=== PATIENT | female | born 1985 | race Hispanic/Latino ===

== ENCOUNTER 2017-05-12 19:36 | Emergency (ER) | payer SELFPAY | END 2017-05-12 20:26 | disposition home or self-care (01) | LOC: ERS 19:36 | DX: M25.532 Pain in left wrist (principal); R20.2 Paresthesia of skin | CPT/HCPCS: 99283 ==

== ENCOUNTER 2021-02-19 16:25 | Emergency (ER) | payer BC ==
[2021-02-19] MEDS ORDERED: Cyclobenzaprine 10 MG TAB ONE (17:25)
[2021-02-19] MEDS ORDERED: Ketorolac Tromethamine 30 MG/ML VIAL ONE (17:25)
[2021-02-19 17:34] LABS: #Basophils 0.1 thou/uL (0.0-0.2); #Eosinphils 0.3 thou/uL (0.0-0.7); #Lymphocytes 1.9 thou/uL (1.20-3.40); #Monocytes 0.6 thou/uL (0.11-0.59); #Neutrophils 6.3 thou/uL (1.40-6.50); %Basophils 0.6 % (0.0-1.0); %Eosinophils 3.4 % (0.0-10.0); %Lymphocytes 20.6 % (21.0-51.0); %Monocytes 6.6 % (0.0-10.0); %Neutrophils 68.7 % (42.0-75.0); Hemoglobin 12.5 g/dL (12.0-16.0); Mean Corpuscular HGB CONC 32.8 g/dL (32.0-36.0); Mean Corpuscular Hemoglobin 30.8 pg (27.0-31.0); Mean Corpuscular Volume 93.8 fL (78.0-98.0); Mean Platelet Volume 7.7 fL (7.4-10.4); Platelet Count 363 thou/uL (130-400); RBC Distribution Width 11.8 % (11.5-14.5); Red Blood Cell (RBC) Count 4.07 mill/uL (4.20-5.40); White Blood Cell (WBC) Count 9.2 thou/uL (4.8-10.8)
[2021-02-19 17:53] LABS: ALT (SGPT) 44 U/L (8-55); AST (SGOT) 30 U/L (5-34); Albumin 4.2 g/dL (3.5-5.0); Alkaline Phosphatase 96 U/L (40-110); Anion Gap 16 mmol/L (10-20); BUN (Urea Nitrogen) 12 mg/dL (7.0-18.7); Bilirubin, Total 0.5 mg/dL (0.2-1.2); Calc. Creatinine Clearance 0 mL/min (70-130); Calcium 9.5 mg/dL (7.8-10.44); Carbon Dioxide 23 mmol/L (22-29); Chloride 103 mmol/L (98-107); Globulin 3.8 g/dL (2.4-3.5); Glucose 110 mg/dL (70-105); Potassium 4.5 mmol/L (3.5-5.1); Sodium 137 mmol/L (136-145)
== END 2021-02-19 18:59 | disposition home or self-care (01) ==
LOC: ERS 16:25
DX: S29.011A Strain of muscle and tendon of front wall of thorax, initial encounter (principal); X58.XXXA Exposure to other specified factors, initial encounter
CPT/HCPCS: 36415; 71045; 80053; 84484; 85025; 93005; 96374; J1885

== ENCOUNTER 2021-09-17 14:37 | Outpatient (CLI) | payer BC | END 2021-09-17 14:38 | disposition home or self-care (01) | LOC: ULT 14:37 | PROVIDERS: ATTEND Nurse Practitioner Family | DX: R22.1 Localized swelling, mass and lump, neck (principal); R59.0 Localized enlarged lymph nodes | CPT/HCPCS: 76536 ==

== ENCOUNTER 2021-10-07 13:00 | Outpatient (CLI) | payer BC | END 2021-10-07 13:01 | disposition home or self-care (01) | LOC: BICCT 13:00 → ULT 13:01 | PROVIDERS: ATTEND Nurse Practitioner Family | DX: R59.0 Localized enlarged lymph nodes (principal); R79.1 Abnormal coagulation profile; C09.9 Malignant neoplasm of tonsil, unspecified | CPT/HCPCS: 70492 ==

== ENCOUNTER 2021-10-12 18:12 | Emergency (ER) | payer BC ==
[2021-10-12 18:48] LABS: #Basophils 0.1 thou/uL (0.0-0.2); #Eosinphils 0.3 thou/uL (0.0-0.7); #Lymphocytes 2.2 thou/uL (1.20-3.40); #Monocytes 0.7 thou/uL (0.11-0.59); #Neutrophils 6.1 thou/uL (1.40-6.50); %Basophils 0.6 % (0.0-1.0); %Eosinophils 3.3 % (0.0-10.0); %Lymphocytes 23.9 % (21.0-51.0); %Monocytes 7.1 % (0.0-10.0); %Neutrophils 65.2 % (42.0-75.0); Hemoglobin 11.4 g/dL (12.0-16.0); Mean Corpuscular HGB CONC 31.9 g/dL (32.0-36.0); Mean Corpuscular Volume 94.1 fL (78.0-98.0); Mean Platelet Volume 6.8 fL (7.4-10.4); Platelet Count 458 thou/uL (130-400); White Blood Cell (WBC) Count 9.4 thou/uL (4.8-10.8)
[2021-10-12 19:11] LABS: ALT (SGPT) 19 U/L (8-55); AST (SGOT) 17 U/L (5-34); Albumin 3.9 g/dL (3.5-5.0); Alkaline Phosphatase 92 U/L (40-110); Anion Gap 12 mmol/L (10-20); BUN (Urea Nitrogen) 6 mg/dL (7.0-18.7); Bilirubin, Total 0.6 mg/dL (0.2-1.2); Calc. Creatinine Clearance 0 mL/min (70-130); Calcium 9.2 mg/dL (7.8-10.44); Carbon Dioxide 27 mmol/L (22-29); Chloride 103 mmol/L (98-107); Estimated GFR 113; Globulin 4.1 g/dL (2.4-3.5); Glucose 100 mg/dL (70-105); Potassium 3.9 mmol/L (3.5-5.1); Sodium 138 mmol/L (136-145)
== END 2021-10-12 21:45 | disposition home or self-care (01) ==
LOC: ERS 18:12
DX: R60.0 Localized edema (principal)
CPT/HCPCS: 36415; 80053; 82550; 83880; 84484; 85025; 93005

== ENCOUNTER 2021-10-25 14:14 | Outpatient (CLI) | payer BC ==
[2021-10-25 15:45] LABS: BHCG - Serum Negative (NEGATIVE); Pregs Control Background? CLEAR/WHITE (CLR/WHITE); Pregs Control Bar Appear? YES (CONTROL BAR)
[2021-10-26 13:40] VITALS: BMI 26.6
== END 2021-10-25 14:15 | disposition home or self-care (01) ==
LOC: LABBT 14:14
PROVIDERS: ATTEND Otolaryngology Plastic Surgery within the Head & Neck
DX: Z01.812 Encounter for preprocedural laboratory examination (principal); J35.1 Hypertrophy of tonsils; R22.1 Localized swelling, mass and lump, neck; R59.0 Localized enlarged lymph nodes; R60.0 Localized edema; Z20.822 Contact with and (suspected) exposure to COVID-19
CPT/HCPCS: 84703; 85014; 87811

== ENCOUNTER 2021-10-27 08:03 | Day surgery (SDC) | payer BC ==
[2021-10-27] MEDS ORDERED: Lidocaine 1% MPF 2 ML VIAL ONE (08:31)
[2021-10-27] MEDS ORDERED: Lidocaine 1% w/Epinephrine 1:100K 20 ML VIAL ONE (09:21)
[2021-10-27] MEDS ORDERED: fentaNYL Citrate/PF 100 MCG/2 ML SYRINGE ONE (09:27)
[2021-10-27] MEDS ORDERED: Famotidine/PF 20 mg/2ml Vial ONE (09:27)
[2021-10-27] MEDS ORDERED: SUGAMMADEX SODIUM 200 MG/2 ML VIAL ONE (09:28)
[2021-10-27] MEDS ORDERED: PROPOFOL 200 MG/20 ML VIAL ONE (09:58)
[2021-10-27] MEDS ORDERED: Rocuronium Bromide 10 MG/ML (10ML VIAL) ONE (09:58)
[2021-10-27] MEDS ORDERED: Ondansetron PF 4 MG/2 ML Vial ONE (09:58)
[2021-10-27] MEDS ORDERED: Dexamethasone 20 MG/5 ML VIAL ONE (09:58)
[2021-10-27] MEDS ORDERED: Lidocaine 1% PF 5 ML VIAL ONE (09:58)
[2021-10-27] MEDS ORDERED: HYDROcodone/Acetaminophen 5/325 mg Tablet ONE (12:12)
== END 2021-10-27 12:42 | disposition home or self-care (01) ==
LOC: SDC 08:03
PROVIDERS: ATTEND Otolaryngology Plastic Surgery within the Head & Neck
PROC: 07B10ZX Excision of Right Neck Lymphatic, Open Approach, Diagnostic (ICD-10-PCS; principal; 2021-10-27)
DX: R59.0 Localized enlarged lymph nodes (principal); R60.0 Localized edema; J35.1 Hypertrophy of tonsils
CPT/HCPCS: 87070; 87205; 88305; 88312; C1776; C1889; J1100; J2405; J2704; S0028

== ENCOUNTER 2021-12-29 06:18 | Day surgery (SDC) | payer BC ==
[2021-12-27 10:21] VITALS: BMI 27.6
[2021-12-29] MEDS ORDERED: fentaNYL Citrate/PF 100 MCG/2 ML SYRINGE ONE (07:13)
[2021-12-29 07:24] LABS: BHCG - Serum Negative (NEGATIVE); Pregs Control Background? CLEAR/WHITE (CLR/WHITE); Pregs Control Bar Appear? YES (CONTROL BAR)
[2021-12-29] MEDS ORDERED: Dexmedetomidine 200 MCG/2 ML VIAL ONE (07:35)
[2021-12-29] MEDS ORDERED: PROPOFOL 200 MG/20 ML VIAL ONE (07:40)
[2021-12-29] MEDS ORDERED: Ondansetron PF 4 MG/2 ML Vial ONE (07:40)
[2021-12-29] MEDS ORDERED: Dexamethasone 20 MG/5 ML VIAL ONE (07:40)
[2021-12-29] MEDS ORDERED: Lidocaine 1% MPF 2 ML VIAL ONE (07:40)
[2021-12-29] MEDS ORDERED: methylPREDNISolone Acetate 40 mg/ml Vial ONE (07:46)
[2021-12-29] MEDS ORDERED: Ferric Subsulfate (ASTRINGYN) 8 GM VIAL ONE (07:52)
[2021-12-29] MEDS ORDERED: Fentanyl 100 MCG/2 ML VIAL ONE (08:13)
[2021-12-29] MEDS ORDERED: Morphine 2 MG/ML VIAL ONE ×2 (08:55→09:13)
[2021-12-29] MEDS ORDERED: Hydrocodone-Acetamin 15 ML UDCUP ONE (09:48)
== END 2021-12-29 10:25 | disposition home or self-care (01) ==
LOC: SDC 06:18
PROVIDERS: ATTEND Otolaryngology Plastic Surgery within the Head & Neck
PROC: 0CTPXZZ Resection of Tonsils, External Approach (ICD-10-PCS; principal; 2021-12-29)
DX: J35.8 Other chronic diseases of tonsils and adenoids (principal); J35.01 Chronic tonsillitis
CPT/HCPCS: 84703; 85014; 88304; J1100; J2270; J2405; J2704; J2920; J3010

== ENCOUNTER 2022-02-07 15:59 | Outpatient (CLI) | payer BC ==
[2022-02-07 17:02] LABS: Anion Gap 11 mmol/L (10-20); BUN (Urea Nitrogen) 12 mg/dL (7.0-18.7); Calc. Creatinine Clearance 0 mL/min (70-130); Calcium 9.3 mg/dL (7.8-10.44); Carbon Dioxide 26 mmol/L (22-29); Chloride 104 mmol/L (98-107); Estimated GFR 118; Glucose 91 mg/dL (70-105); Potassium 4.3 mmol/L (3.5-5.1); Sodium 137 mmol/L (136-145)
== END 2022-02-07 16:00 | disposition home or self-care (01) ==
LOC: LABBT 15:59
PROVIDERS: ATTEND Internal Medicine Cardiovascular Disease
DX: Z01.812 Encounter for preprocedural laboratory examination (principal); I07.1 Rheumatic tricuspid insufficiency
CPT/HCPCS: 80048

== ENCOUNTER 2022-02-08 06:27 | Day surgery (SDC) | payer BC ==
[2022-02-07 13:04] VITALS: BMI 26.6
[2022-02-08] MEDS ORDERED: PROPOFOL 200 MG/20 ML VIAL ONE (08:02)
== END 2022-02-08 10:37 | disposition home or self-care (01) ==
LOC: SDC 06:27
PROVIDERS: ATTEND Internal Medicine Cardiovascular Disease
PROC: B246ZZ4 Ultrasonography of Right and Left Heart, Transesophageal (ICD-10-PCS; principal; 2022-02-08)
DX: I07.1 Rheumatic tricuspid insufficiency (principal); Q21.12 Patent foramen ovale; I70.0 Atherosclerosis of aorta
CPT/HCPCS: 82274; 83630; 87324; 87449; 87505; 93312; J2704

== ENCOUNTER 2024-03-11 13:47 | Outpatient (CLI) | payer BC | END 2024-03-11 13:48 | disposition home or self-care (01) | LOC: ULT 13:47 | PROVIDERS: ATTEND Nurse Practitioner Family | DX: N92.6 Irregular menstruation, unspecified (principal); R10.2 Pelvic and perineal pain; N85.4 Malposition of uterus; N83.201 Unspecified ovarian cyst, right side; N83.202 Unspecified ovarian cyst, left side | CPT/HCPCS: 76856 ==